=== PATIENT | female | born 1970 | race Caucasian/White ===

== ENCOUNTER 2024-01-29 15:03 | Emergency (ER) | payer BC, OTHER ==
--- NOTE | 2024-01-29 16:23 | RAD REPORT ---
EXAM: XR of the abdomen HISTORY: Abdominal pain CONSTIPATION COMPARISON: None FINDINGS: XR of the abdomen shows a nonspecific, nonobstructive bowel gas pattern. Significant fecal retention throughout the colon. No suspicious calcifications are seen. The bones are unremarkable. IMPRESSION: Significant constipation noted.
[2024-01-29 16:27] LABS: Absolute Eosinophils 0.1 K/uL (0-0.5); Absolute Lymphocytes (CBC) 2.7 K/uL (0.7-4.9); Absolute Monocytes 0.5 K/uL (0.1-1.3); Absolute Neutrophil 2.6 K/uL (1.8-8.0); Basophils % 0.6 % (0-1.3); Eosinophils % 1.4 % (0-4.4); Hematocrit 39.6 % (36.0-45.0); Hemoglobin 13.4 g/dL (12.0-15.0); Lymphocytes % 46.1 % (15.3-44.8); MCH 31.3 pg (27.0-35.0); MCHC 33.8 g/dL (32.0-36.0); MCV 92.5 fL (80-100); Neutrophils % 43.9 % (41.7-73.7); Nucleated Red Blood Cells % 0.1 % (0-0); Platelets 292 thou/uL (152-406); RBC Red Blood Cell Count 4.28 M/uL (3.86-4.86); Red Cell Distribution Width 12.9 % (12.1-15.2)
[2024-01-29] MEDS ORDERED: SIMETHICONE 80 MG CHEWABLE TAB ONE (16:37)
[2024-01-29 16:59] LABS: Albumin 3.8 g/dL (3.4-5.0); Albumin/Globulin Ratio 1.1 (1.1-1.8); Anion Gap 8.9 mEq/L (5.0-15.0); Bilirubin Total 0.3 mg/dL (0.2-1.0); Globulin 3.4 g/dL (2.3-3.5); Potassium 3.9 mEq/L (3.5-5.1); Protein, Total 7.2 g/dL (6.4-8.2)
--- NOTE | 2024-01-29 17:01 | EDPHYS ---
Physician Documentation [facility] Name: Chelsea Perry Age: 53 yrs Sex: Female : 1970 Arrival Date: 01/29/2024 Time: 15:03 Bed 18 Private MD: ED Physician Carlitos Bower HPI: 01/28 16:24 This 53 yrs old Female presents to ER via Ambulatory with complaints of ec2 Abdominal Pain. 16:24 Patient arrives today for evaluation of abdominal discomfort, bloating as well as ec2 gassiness. Reports that she feels that she is constipated. Patient is on tirzepatide, reports no recent medication changes. No vomiting or diarrhea.. Historical: - Allergies: 15:41 No Known Allergies; ko1 - Home Meds: 15:41 Trazodone Oral [Active]; sertraline oral [Active]; tirzepatide (weight loss) ko1 subcutaneous [Active]; - PMHx: 15:41 Anxiety; Depressive disorder; ko1 - PSHx: 15:41 None; ko1 - Immunization history:: Adult Immunizations unknown. - Infectious Disease History:: Denies. - Social history:: Smoking status: Patient denies any tobacco usage or history of. ROS: 16:24 Constitutional: as per hpi ec2 Exam: 16:25 Constitutional: GEN: NAD Head: atraumatic Eyes: EOMI Ears: External ears are ec2 normal. CV: regular rate LUNGS: no respiratory distress ABD: non-distended, soft, minimally tender in the epigastrium, not guarding, not rigid. SKIN: no evidence of rashes MSK: no evidence of trauma Vital Signs: 15:37 BP 117 / 76; Pulse 66; Resp 16; Temp 97.1; Pulse Ox 98% ; ko1 17:19 BP 118 / 89; Pulse 64; Resp 17; Temp 97.1; Pulse Ox 99% on R/A; MAP 98 mmHg; Pain 1/10; tm6 17:19 Pain Scale: Adult tm6 MDM: 15:32 Medical Screening Exam initiated ec2 16:25 Data reviewed: vital signs, nurses notes. ED course: Patient arrives today for ec2 evaluation of abdominal discomfort. Examination is revealing for well-appearing nontoxic hemodynamically stable with a reassuring abdominal examination. Will obtain lab work and radiographs. Suspect constipation, doubt pancreatitis, doubt urinary tract infection.. 17:00 ED course: Labs nonactionable. Patient tolerating p.o. without issue. Will discharge ec2 home. Return precautions given.. 12 15:41 Order name: CBC with Diff; Complete Time: 16:30 ec2 01/28 15:41 Order name: CMP; Complete Time: 17:00 ec2 01/28 15:41 Order name: Lipase; Complete Time: 17:00 ec2 01/28 15:41 Order name: Abdomen 1 View (KUB) XRAY; Complete Time: 16:24 ec2 01/28 15:41 Order name: IV Saline Lock; Complete Time: 16:42 ec2 01/28 15:41 Order name: Labs collected and sent; Complete Time: 16:42 ec2 Administered Medications: 15:46 CANCELLED (Physician Discretion): ondansetron 4 mg IVP once; over 2 minutes ec2 16:42 Drug: Simethicone PO 240 mg PO once Route: PO; tm6 17:22 Follow up: Response: No adverse reaction tm6 Disposition Summary: 01/29/24 17:00 Discharge Ordered Notes: Location: Home ec2 Condition: Stable ec2 Diagnosis - Constipation ec2 Followup: ec2 - With: Private Physician - When: - Reason: Re-evaluation by your physician Discharge Instructions: - Discharge Summary Sheet ec2 Forms: - Medication Reconciliation Form ec2 - Antibiotic Education ec2 - Prescription Opioid Use ec2 - Patient Portal Instructions ec2 - Leadership Thank You Letter ec2 Prescriptions: - Lactulose 10 gram/15 mL Oral Solution - take 30 milliliters ORAL route once daily; 300 milliliter; Refills: 0, Product ec2 Selection Permitted Signatures: Dispatcher [employer] EDMS Lisa Westfall RN RN ko1 Carlitos Bower MD MD ec2 Phi Henson RN RN tm6 Corrections: (The following items were deleted from the chart) 15:42 15:41 CBC+H.LAB.BRZ ordered. EDMS EDMS 15:42 15:41 COMPREHENSIVE METABOLIC PANEL+C.LAB.BRZ ordered. EDMS EDMS 15:42 15:41 LIPASE+C.LAB.BRZ ordered. EDMS EDMS 15:42 15:42 Abdomen 1 View (KUB)+RAD.RAD.BRZ ordered. EDMS EDMS 15:46 15:41 Ondansetron IVP 4 mg IVP once; over 2 minutes ordered. ec2 ec2
--- NOTE | 2024-01-29 17:01 | ER ---
Nurse's Notes [facility] Name: Chelsea Perry Age: 53 yrs Sex: Female : 1970 Arrival Date: 01/29/2024 Time: 15:03 Bed 18 Private MD: Diagnosis: Constipation Presentation: 01/28 15:37 Chief complaint: Patient states: LUQ pain started last night but is worse today, I ko1 thought I was constipated and I have a lot of gas, I take tirzepatide injections. Coronavirus screen: At this time, the client does not indicate any symptoms associated with coronavirus-19. Ebola Screen: No symptoms or risks identified at this time. Initial Sepsis Screen: Does the patient meet any 2 criteria? No. Patient's initial sepsis screen is negative. Does the patient have a suspected source of infection? No. Patient's initial sepsis screen is negative. Risk Assessment: Do you want to hurt yourself or someone else? Patient reports no desire to harm self or others. Onset of symptoms was January 29, 2024. 15:37 Method Of Arrival: Ambulatory ko1 15:37 Acuity: MARIEL 3 ko1 Triage Assessment: 15:41 General: Appears in no apparent distress. uncomfortable, Behavior is calm, cooperative, ko1 appropriate for age. Pain: Complains of pain in left upper quadrant and left lower quadrant. GI: Reports lower abdominal pain, upper abdominal pain. Historical: - Allergies: 15:41 No Known Allergies; ko1 - Home Meds: 15:41 Trazodone Oral [Active]; sertraline oral [Active]; tirzepatide (weight loss) ko1 subcutaneous [Active]; - PMHx: 15:41 Anxiety; Depressive disorder; ko1 - PSHx: 15:41 None; ko1 - Immunization history:: Adult Immunizations unknown. - Infectious Disease History:: Denies. - Social history:: Smoking status: Patient denies any tobacco usage or history of. Screenin:44 [facility] ED Fall Risk Assessment (Adult) History of falling in the last 3 months, tm6 including since admission No falls in past 3 months (0 pts) Confusion or Disorientation No (0 pts) Intoxicated or Sedated No (0 pts) Impaired Gait No (0 pts) Mobility Assist Device Used No (0 pt) Altered Elimination No (0 pt) Score/Fall Risk Level 0 - 2 = Low Risk Oriented to surroundings, Maintained a safe environment, Educated pt \T\ family on fall prevention, incl call for assistance when getting out of bed. Abuse screen: Denies threats or abuse. Denies injuries from another. Nutritional screening: No deficits noted. Tuberculosis screening: No symptoms or risk factors identified. Assessment: 15:44 General: Appears in no apparent distress. Behavior is calm, cooperative. Pain: tm6 Complains of pain in left lower quadrant and left upper quadrant Pain currently is 1 out of 10 on a pain scale. Pain began 1 day ago. Neuro: Level of Consciousness is awake, alert, obeys commands, Oriented to person, place, time, situation. Cardiovascular: Patient's skin is warm and dry. Respiratory: Airway is patent Respiratory effort is even, unlabored, Respiratory pattern is regular, symmetrical. GI: Abdomen is flat, non-distended, Bowel sounds present X 4 quads. Abd is soft and non tender Reports lower abdominal pain, upper abdominal pain. : No signs and/or symptoms were reported regarding the genitourinary system. EENT: No signs and/or symptoms were reported regarding the EENT system. Derm: No signs and/or symptoms reported regarding the dermatologic system. Musculoskeletal: No signs and/or symptoms reported regarding the musculoskeletal system. Vital Signs: 15:37 BP 117 / 76; Pulse 66; Resp 16; Temp 97.1; Pulse Ox 98% ; ko1 17:19 BP 118 / 89; Pulse 64; Resp 17; Temp 97.1; Pulse Ox 99% on R/A; MAP 98 mmHg; Pain 1/10; tm6 17:19 Pain Scale: Adult tm6 ED Course: 15:07 Patient arrived in ED. ra3 15:08 Carlitos Bower MD is Attending Physician. ec2 15:40 Triage completed. ko1 15:41 Arm band placed on right wrist. Patient placed in an exam room, on a stretcher, on ko1 pulse oximetry, Patient notified of wait time. 15:44 Patient has correct armband on for positive identification. Bed in low position. Call tm6 light in reach. Side rails up X 1. Provided Education on: use of call hough. Client placed on continuous cardiac and pulse oximetry monitoring. NIBP monitoring applied. Pulse ox on. NIBP on. Door closed. Noise minimized. Warm blanket given. 15:44 Inserted saline lock: 20 gauge in right antecubital area, using aseptic technique. tm6 Blood collected. Flushed with 10 mL NS. 16:05 Abdomen 1 View (KUB) XRAY In Process Unspecified. EDMS 16:33 Phi Henson, RN is Primary Nurse. tm6 17:21 No provider procedures requiring assistance completed. IV discontinued, intact, tm6 bleeding controlled, No redness/swelling at site. Pressure dressing applied. Administered Medications: 15:46 CANCELLED (Physician Discretion): ondansetron 4 mg IVP once; over 2 minutes ec2 16:42 Drug: Simethicone PO 240 mg PO once Route: PO; tm6 17:22 Follow up: Response: No adverse reaction tm6 Medication: 15:44 VIS not applicable for this client. tm6 Outcome: 17:00 Discharge ordered by . ec2 17:21 Discharged to home ambulatory, tm6 17:21 Condition: stable 17:21 Discharge instructions given to patient, Instructed on discharge instructions, follow up and referral plans. medication usage, Demonstrated understanding of instructions, follow-up care, medications, Prescriptions given X 1, 17:22 Patient left the ED. tm6 Signatures: Dispatcher [employer] EDLisa Kelly, RN RN ko1 Carlitos Bower MD MD ec2 Phi Henson, RAMON RN tm6 Zoraida Godinez ra3
[2024-01-29 17:32] VITALS: TEMP 97.1
[2024-01-29 17:34] VITALS: BP 118/89; O2SAT 99
== END 2024-01-29 17:22 | disposition home or self-care (01) ==
LOC: ER 15:03
DX: K59.00 Constipation, unspecified (principal); F41.9 Anxiety disorder, unspecified; F32.A Depression, unspecified
CPT/HCPCS: 36415; 74018; 80053; 83690; 85025; 99284